=== PATIENT | female | born 1995 | race Caucasian/White ===

== ENCOUNTER → 2021-12-21 08:11 | Outpatient (BNVA) | payer MEDICAID, SELFPAY | PROVIDERS: Visit Provider Psychiatry & Neurology Psychiatry | DX: F33.2 Major depressive disorder, recurrent severe without psychotic features (principal); F41.1 Generalized anxiety disorder; F81.9 Developmental disorder of scholastic skills, unspecified; F17.210 Nicotine dependence, cigarettes, uncomplicated | CPT/HCPCS: 99204 ==

== ENCOUNTER → 2022-01-18 09:59 | Outpatient (BNVA) | payer MEDICAID, SELFPAY | PROVIDERS: Visit Provider Psychiatry & Neurology Psychiatry | DX: F17.210 Nicotine dependence, cigarettes, uncomplicated; F33.2 Major depressive disorder, recurrent severe without psychotic features; F41.1 Generalized anxiety disorder | CPT/HCPCS: 99214 ==

== ENCOUNTER → 2022-02-27 09:41 | Outpatient (BNVA) | payer MEDICAID, SELFPAY | PROVIDERS: Visit Provider Counselor Mental Health | DX: F41.1 Generalized anxiety disorder (principal); F33.2 Major depressive disorder, recurrent severe without psychotic features | CPT/HCPCS: 90834 ==

== ENCOUNTER → 2022-03-01 10:07 | Outpatient (BNVA) | payer MEDICAID, SELFPAY | PROVIDERS: Visit Provider Psychiatry & Neurology Psychiatry | DX: F41.1 Generalized anxiety disorder (principal); F33.2 Major depressive disorder, recurrent severe without psychotic features; F17.210 Nicotine dependence, cigarettes, uncomplicated; F81.9 Developmental disorder of scholastic skills, unspecified | CPT/HCPCS: 99213 ==

== ENCOUNTER 2023-06-01 15:30 | Emergency (ER) | payer BC, MEDICAID, SELFPAY ==
[2023-06-01 15:40] VITALS: BP 127/83; PULSE 78; RESP 16; O2SAT 99
--- NOTE | 2023-06-01 16:34 | XRR_ITS ---
PROCEDURE INFORMATION: Exam: XR Right Knee Exam date and time: 06/01/2023 4:53 PM Age: 28 years old Clinical indication: Injury or trauma; Swelling (edema); Right; Injury details: RT knee pain/swelling x 2 mo; Worse today; No known injury TECHNIQUE: Imaging protocol: Radiologic exam of the right knee. Views: 3 views. COMPARISON: No relevant prior studies available. FINDINGS: Bones/joints: Normal. Soft tissues: Normal. XR/XR knee RT 3V* [id number] IMPRESSION: No acute findings.
--- NOTE | 2023-06-01 16:51 | W.ED.EXTPRO ---
HPI - Extremity Problem General: Chief complaint: Extremity Problem,Nontraumatic Stated complaint: RT knee inj Time Seen by Provider: 06/01/23 16:49 History of Present Illness: 28-year-old female comes in today with complaints of pain to the right knee for the last month. Patient denies any recent injury. Patient appears nontoxic. Patient reports knee pain is just to the proximal patella. Patient denies any chronic medical problems. Patient appears in mild to no pain. Review of Systems General: Reports: 10 or more systems reviewed and unremarkable except in HPI and below Musc: Reports: extremity pain PFSH ED PFSH: Medical History (Updated 06/01/23 @ 17:07 by MARION Cohen) Psychiatric care Social History (Updated 03/01/22 @ 10:22 by Ramon Thompson LPN) Smoking and tobacco status: current every day smoker cigarettes Packs smoked per day: 0.5 Years cigarettes smoked: 8 Quit status (tobacco): has tried quititng Number of times tried to quit tobacco: 3 Second hand smoke exposure: Yes Alcohol intake: never Physical Exam Const: COMMON NORMALS: alert HENMT: COMMON NORMALS: normocephalic HEAD & SCALP: normocephalic Neck/C-Spine: COMMON NORMALS: full ROM Resp: COMMON NORMALS: normal respiratory effort Cardio: COMMON NORMALS: regular rate RATE: regular rate Back/Pelvis: COMMON NORMALS: thoracic and lumbar spine normal to inspection Extremity: COMMON NORMALS: normal to inspection RIGHT LOWER EXTREMITY: Yes knee joint (Anterior tenderness, proximal patella) Neuro: SENSORIUM/ORIENTATION: Yes alert Skin: COMMON NORMALS: turgor normal GENERAL SKIN EXAM: turgor normal Course Vital Signs: Vital signs: Vital Signs Pulse Rate 78 06/01/23 15:40 Respiratory Rate 16 06/01/23 15:40 Blood Pressure 127/83 06/01/23 15:40 Pulse Oximetry 99 06/01/23 15:40 Oxygen Delivery Me thod Room Air 06/01/23 15:40 MDM - Extremity (Nontraumatic) Medical Decision Making 28-year-old female comes in today with right anterior knee pain. On exam there is no signs of redness or significant swelling. Patient has some tenderness to the proximal patella and tendon insertion point. Differential diagnosis includes fracture, sprain, tendinitis, patellofemoral syndrome. X-ray was unremarkable. Patient be started on naproxen and a short burst of steroids to help with pain and inflammation. Recommend follow-up with primary care return to ED for new concerns or worsening symptoms such as high fever or, redness or swelling to the leg. Patient reported understanding. XR interpretation done by ED provider, pending radiology final review Discharge Plan Discharge Patient Disposition: Home Clinical Impression: Patellar tendinitis of right knee Condition: Stable Prescriptions: New naproxen 500 mg tablet 500 mg PO BID Qty: 30 0RF prednisone 20 mg tablet 20 mg PO BID 5 Days Qty: 10 0RF No Action trazodone 50 mg tablet 100 mg PO .HS PRN (Reason: insomnia) Qty: 60 2RF bupropion HCl [Wellbutrin XL] 150 mg tablet extended release 24 hr 150 mg PO QAM Qty: 30 2RF fluoxetine [Prozac] 40 mg capsule 40 mg PO DAILY Qty: 30 2RF varenicline 1 mg tablet 1 mg PO BID Qty: 56 0RF nicotine 21 mg/24 hr patch 24 hour 1 patch transdermal DAILY Qty: 28 2RF Discharge Orders: Discharge ED (Routine); Ordered 06/01/23 Ordered By: Billy Carey Discharge Diet: Usual diet Discharge Activity: Increase activity as tolerated Patient Instructions: Knee Pain (ED) Activity Restrictions/Additional Instructions: Activity as tolerated. Use ice or heat to help with pain. Use acetaminophen along with naproxen to control pain. Use prednisone as directed for the next 5 days to help decrease inflammation of the tendon and joint. Drink plenty of water and fluids. Follow-up with primary care for persistent symptoms. Return to ED for new concerns or worsening symptoms such as increased redness and swelling of the knee, or high fever. Stand Alone Forms: Work/School Release Coding Level of Care Code ED Expense Analyst for Sneha Huizar
[2023-06-01] MEDS: naproxen 500 mg Tablet PO (17:23)
[2023-06-01] MEDS: predniSONE 20 mg Tablet PO (17:23)
== END 2023-06-01 17:28 | disposition home or self-care (01) ==
PROVIDERS: Emergency Provider Nurse Practitioner Family
DX: M76.51 Patellar tendinitis, right knee (principal); F17.210 Nicotine dependence, cigarettes, uncomplicated
CPT/HCPCS: 73562; 99283; J7512

== ENCOUNTER 2023-09-04 18:10 | Emergency (ER) | payer BC, MEDICAID, SELFPAY ==
[2023-09-04 18:20] VITALS: BP 144/91; PULSE 98; RESP 18; TEMP 39.1; O2SAT 100
--- NOTE | 2023-09-04 19:01 | ED_ITS ---
HPI - Back Pain/Injury 2 General: Chief Complaint: Back Pain/Injury Stated Complaint: low back pain Time Seen by Provider: 09/04/23 18:58 History of Present Illness: 28-year-old female comes in today with u rinary discomfort starting 1 week ago. Patient today started having low back pain. Patient appears mildly unwell but not toxic. Patient reports it has been a couple of months since she has had a urinary tract infection. Patient denies any other complaints. Patient is febrile. Patient takes medications for mental health disorder. Associated symptoms: Reports dysuria; Deny nausea or vomiting Review of Systems 2 General: Reports: 10 or more systems reviewed and unremarkable except in HPI and below Eyes: Denies: eye discomfort ENMT: Denies: throat pain or nasal discharge Card: Denies: chest pain Resp: Denies: dyspnea or non-productive cough GI: Denies: nausea, vomiting, diarrhea or constipation : Reports: dysuria and urinary frequency Musc: Reports: neck pain and back pain Skin/Breast: Denies: rash Neuro: Denies: headache(s) PFSH ED 2 PFSH: Medical History (Updated 09/04/23 @ 20:03 by MARION Cohen) Psychiatric care Social History (Updated 03/01/22 @ 10:22 by Ramon Thompson LPN) Smoking and tobacco/nicotine status: current every day tobacco/nicotine user cigarettes Packs smoked per day: 0.5 Years cigarettes smoked: 8 Quit status (tobacco/nicotine): has tried quititng Number of times tried to quit tobacco: 3 Second hand smoke exposure: Yes Alcohol intake: never Physical Exam 2 Const: COMMON NORMALS: alert HENMT: COMMON NORMALS: normocephalic HEAD & SCALP: normocephalic Neck/C-Spine: COMMON NORMALS: full ROM and no meningeal signs Resp: COMMON NORMALS: normal respiratory effort and clear to auscultation bilaterally AUSCULTATION: clear to auscultation bilaterally Cardio: COMMON NORMALS: regular rate and regular rhythm RATE: regular rate RHYTHM: regular rhythm GI: COMMON NORMALS: Soft to palpation and non-tender PALPATION: Yes Soft to palpation : COMMON NORMALS: Yes no CVA tenderness BLADDER/KIDNEY EXAM: Yes no CVA tenderness Back/Pelvis: COMMON NORMALS: no CVA tenderness Extremity: COMMON NORMALS: normal to inspection and full ROM Neuro: SENSORIUM/ORIENTATION: Yes alert MENINGEAL SIGNS: Yes no meningeal signs Skin: COMMON NORMALS: turgor normal GENERAL SKIN EXAM: turgor normal Course 2 Vital Signs: Vital signs: Vital Signs Temperature 102.3 F H 09/04/23 18:20 Pulse Rate 98 09/04/23 18:20 Respiratory Rate 18 09/04/23 18:20 Blood Pressure 144/91 09/04/23 18:20 Pulse Oximetry 100 09/04/23 18:20 Oxygen Delivery Me thod Room Air 09/04/23 18:20 MDM - Back Pain/Injury Medical Decision Making Patient comes in today for evaluation of low back pain and urinary difficulty x 1 week. Patient has tried [id number] cranberry pills with no relief and persistent symptoms. Patient has had a history of prior urinary tract infections. Patient reports her last urinary infection was 3 to 4 months ago. Patient appears nontoxic. Vital signs are normal except for elevated temperature of 102. Differential diagnosis includes not limited to urinary tract infection, viral syndrome, diverticulitis. Urinalysis had significant amount of red blood cells and white blood cells with positive nitrates. CBC and CMP was unremarkable. Patient was negative on her test. Patient was given 1 g of Rocephin IM for concerns of early pyelonephritis. Patient be kept on cephalexin 50o mg 1 tablet 3 times a day for the next 7 days. Patient was recommended to follow-up with primary care or return to the ER for worsening symptoms. Labs 09/04/23 19:24 09/04/23 19:24 Laboratory Results WBC 10.67 10^3/uL (3.29-11.43) 09/04/23 19:24 Corrected WBC Cancelled 09/04/23 18:44 RBC 4.66 10^6/uL (3.85-5.65) 09/04/23 19:24 Hgb 13.30 g/dL (11.27-16.99) 09/04/23 19:24 Hct 39.9 % (36-47) 09/04/23 19:24 MCV 85.6 fl (85-98) 09/04/23 19:24 MCH 28.5 pg (27-33) 09/04/23 19: MCHC 33.3 g/dL (30-55) 09/04/23 19:24 RDW 12.2 % (12.1-15.1) 09/04/23 19:24 Plt Count 231 10^3/cmm (157-399) 09/04/23 19:24 MPV 10.7 fL (7.4-10.4) H 09/04/23 19:24 Gran % Cancelled 09/04/23 18:44 Neut % (Auto) 69.9 % 09/04/23 19:24 Lymph % (Auto) 18.9 % 09/04/23 19:24 Dawson % (Auto) 10.1 % 09/04/23 19:24 Eos % (Auto) 0.4 % 09/04/23 19:24 Baso % (Auto) 0.3 % 09/04/23 19:24 Neut # (Auto) 7.46 10^3/uL (1.8-7.7) 09/04/23 19:24 Lymph # (Auto) 2.0 10^3/uL (0.8-4.8) 09/04/23 19:24 Dawson # (Auto) 1.1 10^3/uL (0.2-0.9) H 09/04/23 19:24 Eos # (Auto) 0.0 10^3/uL (0.0-0.8) 09/04/23 19:24 Baso # (Auto) 0.0 10^3/uL (0.0-0.1) 09/04/23 19:24 Absolute Gran (auto) Cancelled 09/04/23 18:44 Nucleated RBC % (auto) 0 % 09/04/23 19:24 Nucleated RBCs # 0.0 /100WBC 09/04/23 19:24 Sodium 136 mmol/L (136-145) 09/04/23 19:24 Potassium 3.8 mmol/L (3.5-5.1) 09/04/23 19:24 Chloride 100 mmol/L (98-107) 09/04/23 19:24 Carbon Dioxide 24 mmol/L (22-29) 09/04/23 19:24 Anion Gap 15.8 (5-19) 09/04/23 19:24 BUN 8 mg/dL (6-20) 09/04/23 19:24 Creatinine 0.7 mg/dL (0.5-0.9) 09/04/23 19:24 GFR Calculation 99.6 mL/min (90-130) 09/04/23 19:24 Glucose 108 mg/dL (65-115) 09/04/23 19:24 Calculated Osmolality 281 mOsm/kg (285-295) L 09/04/23 19:24 Calcium 9.3 mg/dL (8.5-10.5) 09/04/23 19:24 Total Bilirubin 0.7 mg/dL (0.15-1.2) 09/04/23 19:24 AST 21 U/L (0-32) 09/04/23 19:24 ALT 35 U/L (0-33) H 09/04/23 19:24 Alkaline Phosphatase 70 U/L (35-105) 09/04/23 19:24 Total Protein 7.7 g/dL (6.6-8.7) 09/04/23 19:24 Albumin 4.1 g/dL (3.5-5.2) 09/04/23 19:24 Globulin 3.6 g/dL (1.3-4.6) 09/04/23 19:24 Lipase 15 U/L (13-60) 09/04/23 19:24 HCG, Qual Cancelled 09/04/23 18:44 Urine Color [place] (Yellow) 09/04/23 19:18 Urine Appearance Cloudy (CLEAR) A 09/04/23 19:18 Urine pH 6.5 (5-7) 09/04/23 19:18 Ur Specific Bagley 1.015 (1.005-1.030) 09/04/23 19:18 Urine Protein 1+ (Negative) H 09/04/23 19:18 Urine Glucose (UA) Norm (Normal) 09/04/23 19:18 Urine Ketones Negative (Negative) 09/04/23 19:18 Urine Blood 3+ (Negative) H 09/04/23 19:18 Urine Nitrate Positive (Negative) H 09/04/23 19:18 Urine Bilirubin Neg (Negative) 09/04/23 19:18 Urine Urobilinogen 4 mg/dL (Negative) H 09/04/23 19:18 Ur Leukocyte Esterase 2+ (Negative) H 09/04/23 19:18 Urine RBC >100 /hpf (0-2) H 09/04/23 19:18 Urine WBC 80-100 /hpf (0-5) H 09/04/23 19:18 Ur Squamous Epith Cells 0-4 /hpf (0-5) H 09/04/23 19:18 Ur Transition Epith Cell 5-10 /hpf 09/04/23 19:18 Amorphous Sediment Not Reportable 09/04/23 19:18 Urine Bacteria 3+ /hpf (NONE) H 09/04/23 19:18 Urine Mucus 1+ /hpf 09/04/23 19:18 No radiology studies performed this visit Discharge Plan Discharge Patient Disposition: Home Clinical Impression: UTI (urinary tract infection) due to Enterococcus Condition: Stable Prescriptions: New cephalexin 500 mg capsule 500 mg PO TID 7 Days Qty: 21 0RF No Action trazodone 50 mg tablet 100 mg PO .HS PRN (Reason: insomnia) Qty: 60 2RF bupropion HCl [Wellbutrin XL] 150 mg tablet extended release 24 hr 150 mg PO QAM Qty: 30 2RF fluoxetine [Prozac] 40 mg capsule 40 mg PO DAILY Qty: 30 2RF varenicline 1 mg tablet 1 mg PO BID Qty: 56 0RF nicotine 21 mg/24 hr patch 24 hour 1 patch transdermal DAILY Qty: 28 2RF naproxen 500 mg tablet 500 mg PO BID Qty: 30 0RF Discharge Orders: Discharge ED (Routine); Ordered 09/04/23 Ordered By: Billy Carey Discharge Diet: Usual diet Discharge Activity: Increase activity as tolerated Patient Instructions: Urinary Tract Infection in Women (ED) Activity Restrictions/Additional Instructions: Drink plenty of water and fluids. Take antibiotics as directed. Follow-up with primary care in 1 week for your recheck. Return to ER for worsening symptoms such as inability to hold fluids down, severe pain, or new concerns. Coding Level of Care Code ED Manufacturing Baker for Sneha Huizar
[2023-09-04] MEDS: acetaminophen 500 mg Tablet 1000 MG PO (19:34)
[2023-09-04 19:51] LABS: Add Urine Microscopic? YES; Bilirubin Urine Neg (Negative); Blood Urine 3+ (Negative); Glucose Urine UA Norm (Normal); Ketones Urine Negative (Negative); Leukocyte Esterase Urine 2+ (Negative); Nitrate Urine Positive (Negative); Protein Urine 1+ (Negative); Specific Gravity, Urine 1.015 (1.005-1.030); Urine Appearance Cloudy (CLEAR); Urine Color Amber (Yellow); Urobilinogen Urine 4 mg/dL (Negative); pH Urine 6.5 (5-7)
[2023-09-04 19:52] LABS: Basophils % 0.3 %; Eosinophils % 0.4 %; Hematocrit 39.9 % (36-47); Lymphocytes % 18.9 %; Mean Corpuscular HGB Conc 33.3 g/dL (30-55); Mean Corpuscular Hemoglobin 28.5 pg (27-33); Mean Corpuscular Volume 85.6 fl (85-98); Mean Platelet Volume 10.7 fL (7.4-10.4); Monocytes # 1.1 10^3/uL (0.2-0.9); Monocytes % 10.1 %; Neutrophils # 7.46 10^3/uL (1.8-7.7); Neutrophils % 69.9 %; Nucleated Red Blood Cells % 0 %; Platelet Count 231 10^3/cmm (157-399); Red Blood Count 4.66 10^6/uL (3.85-5.65); Red Cell Distribution Width 12.2 % (12.1-15.1); White Blood Count 10.67 10^3/uL (3.29-11.43)
[2023-09-04 19:58] LABS: Alanine Aminotransferase 35 U/L (0-33); Albumin Level 4.1 g/dL (3.5-5.2); Alkaline Phosphatase 70 U/L (35-105); Anion Gap 15.8 (5-19); Aspartate Amino Transferase 21 U/L (0-32); Blood Urea Nitrogen 8 mg/dL (6-20); Calcium 9.3 mg/dL (8.5-10.5); Carbon Dioxide 24 mmol/L (22-29); Chloride 100 mmol/L (98-107); Globulin 3.6 g/dL (1.3-4.6); Glomerular Filtration Rate 99.6 mL/min (90-130); Glucose 108 mg/dL (65-115); Lipase 15 U/L (13-60); Osmolality Calculated 281 mOsm/kg (285-295); Potassium 3.8 mmol/L (3.5-5.1); Sodium 136 mmol/L (136-145); Total Bilirubin 0.7 mg/dL (0.15-1.2); Total Protein 7.7 g/dL (6.6-8.7)
[2023-09-04 20:03] LABS: RBC Urine >100 /hpf (0-2); WBC Urine 80-100 /hpf (0-5)
[2023-09-04 20:04] LABS: Add Urine Culture? Yes; Bacteria Urine 3+ /hpf; Mucus Urine 1+ /hpf; Squamous Epithelial Cell Urine 0-4 /hpf (0-5)
[2023-09-04 20:12] LABS: HCG, Serum Qual Negative (Negative)
[2023-09-04] MEDS: cefTRIAXone 1,000 MG in water for injection-sterile 2.1 ML 2.1 MG IM (20:20)
== END 2023-09-04 20:24 | disposition home or self-care (01) ==
PROVIDERS: Emergency Provider Nurse Practitioner Family
DX: N39.0 Urinary tract infection, site not specified (principal); B95.2 Enterococcus as the cause of diseases classified elsewhere; F17.210 Nicotine dependence, cigarettes, uncomplicated
CPT/HCPCS: 36415; 80053; 81001; 83690; 84703; 85025; 87077; 87086; 87186; 96372; 99284; J0696

== ENCOUNTER 2024-07-03 16:09 | Emergency (ER) | payer BC, MEDICAID, SELFPAY ==
[2024-07-03 16:19] VITALS: BP 132/80; PULSE 82; RESP 18; TEMP 37.3; O2SAT 99
--- NOTE | 2024-07-03 16:21 | XRR_ITS ---
PROCEDURE INFORMATION: Exam: XR Right Knee Exam date and time: 07/03/2024 4:30 PM Age: 29 years old Clinical indication: Pain; Knee; Right; Additional info: Injury/pain TECHNIQUE: Imaging protocol: Radiologic exam of the right knee. Views: 3 views. COMPARISON: CR XR knee RT 3V* [id number] 06/01/2023 4:53 PM FINDINGS: Bones/joints: No fracture or acute osseous abnormality. Joint spaces appear unremarkable. No abnormal soft tissue calcification is seen. No significant suprapatellar fullness or effusion. Soft tissues: No significant focal soft tissue abnormality. XR/XR knee RT 3V* [id number] IMPRESSION: No fracture or acute osseous abnormality.
[2024-07-03 19:08] VITALS: BP 140/84; PULSE 53; O2SAT 100
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
[2024-07-03 19:35] VITALS: BP 123/73; PULSE 51; O2SAT 100
== END 2024-07-03 19:20 | disposition home or self-care (01) ==
PROVIDERS: Emergency Provider Physician Assistant
DX: M25.561 Pain in right knee (principal); F17.210 Nicotine dependence, cigarettes, uncomplicated
CPT/HCPCS: 73562; 99283